=== PATIENT | male | born 1980 | race Caucasian/White ===

== ENCOUNTER 2017-04-20 20:59 | Emergency (ER) | payer OTHER ==
[2017-04-20 21:05] VITALS: BP 120/70; PULSE 68; TEMP 98; BMI 27.4
--- NOTE | 2017-04-20 21:06 | PDOC ---
Rapid Medical Evaluation Chief Complaint: Eye Problem Time Seen by Provider: 04/20/17 21:03 Medical Evaluation: Allergies Allergy/AdvReac Type Severity Reaction Status Date / Time No Known Allergies Allergy Verified 04/20/17 21:03 04/20/17 21:04 cc: LEFT EYE PAIN UNSURE OF FOREIGN BODY IN EYE. WORKS WITH [employer]. EYE IRRITATION AND PAIN X 2 DAYS. PE: LEFT EYE REDNESS. NOD RAINAGE. PLAN PATIENT TO THE er FOR FURTHER MANAGEMENT OF CARE.
--- NOTE | 2017-04-20 21:09 | PDOC ---
History of Present Illness - General Chief Complaint: Eye Problem Stated Complaint: EYE PAIN Time Seen by Provider: 04/20/17 21:03 History Source: Patient - History of Present Illness Timing/Duration: other Past History - Past Medical History Allergies/Adverse Reactions: Allergies Allergy/AdvReac Type Severity Reaction Status Date / Time No Known Allergies Allergy Verified 04/20/17 21:03 Home Medications: Ambulatory Orders Erythromycin 0.5% Eye Ointment [Erythromycin 0.5% Eye Ointment -] 1 applic OS DAILY #1 tube 04/20/17 - Suicide/Smoking/Psychosocial Hx Smoking History: Never smoked Review of Systems - Review of Systems HEENTM: No: Eye Pain, Blurred Vision *Physical Exam - Vital Signs Last Vital Signs Temp Pulse Resp BP Pulse Ox 98 F 68 16 120/70 99 04/20/17 21:03 04/20/17 21:03 04/20/17 21:03 04/20/17 21:03 04/20/17 21:03 - Physical Exam General Appearance: Yes: Appropriately Dressed. No: Apparent Distress HEENT: positive: Normal Voice, Other (L conjunc erythema, minimal yellow discharge, no lid lesions, no ovious corneal lesions) Neck: positive: Supple Respiratory/Chest: negative: Respiratory Distress Integumentary: positive: Dry, Warm Neurologic: positive: Fully Oriented, Alert, Normal Mood/Affect Medical Decision Making - Medical Decision Making 04/20/17 21:09 76-year-old male, no significant history here with left conjunctival erythema with discharge 2 days. No pain, tearing, photophobia, foreign body sensation or visual changes. No known trauma. No contact lens use. Patient well- appearing and stable with left conjunctival erythema consistent with conjunctivitis. Will dc with antibiotic ointment. Contact precautions given 04/20/17 21:28 *DC/Admit/Observation/Transfer Diagnosis at time of Disposition: Conjunctivitis Qualifiers: Conjunctivitis type: acute Acute conjunctivitis type: unspecified Laterality: left Qualified Code(s): H10.32 - Unspecified acute conjunctivitis, left eye - Discharge Dispostion Disposition: HOME Condition at time of disposition: Good - Prescriptions Prescriptions: Erythromycin 0.5% Eye Ointment [Erythromycin 0.5% Eye Ointment -] 1 applic OS DAILY #1 tube - Referrals - Patient Instructions Printed Discharge Instructions: Conjunctivitis Additional Instructions: Use antibiotic ointment as prescribed. - Post Discharge Activity Forms/Work/School Notes: Back to Work
== END 2017-04-20 21:30 | disposition home or self-care (01) ==
LOC: JERFT 20:59
DX: H10.32 Unspecified acute conjunctivitis, left eye (principal)
CPT/HCPCS: 99281-25